=== PATIENT | male | born 1970 | race Caucasian/White ===

== ENCOUNTER 2018-05-21 10:00 | Inpatient (IN) | payer BC, OTHER ==
[2018-05-21] MEDS ORDERED: SODIUM CHLORIDE 0.9% 1000ML 1,000 ML IV ONE ×2 (10:45→14:30)
[2018-05-21] MEDS: SODIUM CHLORIDE 0.9% FLUSH 10 ML SOL IV SCH ×2 (11:00→19:35)
[2018-05-21] MEDS: LEVOFLOXACIN 500 MG (PREMIX) 500 MG/100 ML SOL IV SCH (11:20)
[2018-05-21] MEDS ORDERED: VANCOMYCIN HCL 500 MG PDS 1,000 MG in SODIUM CHLORIDE 0.9% 250 ML 250 ML IV ONE (12:00)
[2018-05-21] MEDS ORDERED: SODIUM CHLORIDE 0.9% 250 ML 250 ML IV ONE (13:09)
[2018-05-21] MEDS ORDERED: VANCOMYCIN HYDROCHLORIDE 500 MG PDS IV ONE ×2 (13:09→23:48)
[2018-05-21] MEDS: ACETAMINOPHEN 325 MG PO PRN ×2 (13:28→17:35)
[2018-05-21] MEDS: SODIUM CHLORIDE 0.9% 1000ML 1,000 ML IV SCH (17:35)
[2018-05-21] MEDS: NOVOLOG FLEXPEN SC SCH ×2 (17:44→21:49)
[2018-05-21] MEDS: GABAPENTIN 300 MG CAP PO SCH (20:29)
[2018-05-21] MEDS: APAP/HYDROCODONE 325/5 TAB PO PRN ×2 (20:29→20:33)
[2018-05-21] MEDS: ALBUTEROL NEB SOL 2.5MG/3ML 1 VIAL SOL INH PRN (21:32)
[2018-05-21] MEDS: VANCOMYCIN HCL 500 MG PDS 1,000 MG in SODIUM CHLORIDE 0.9% 250 ML 250 ML IV SCH (22:26)
[2018-05-21] MEDS ORDERED: VANCOMYCIN HCL 500 MG PDS 2,000 MG in SODIUM CHLORIDE 0.9% 500 ML 500 ML IV ONE (23:15)
[2018-05-21] MEDS ORDERED: SODIUM CHLORIDE 0.9% 500 ML 500 ML IV ONE (23:49)
[2018-05-22] MEDS ORDERED: VANCOMYCIN HCL 500 MG PDS 2,000 MG in SODIUM CHLORIDE 0.9% 500 ML 500 ML IV ONE
[2018-05-22] MEDS: APAP/HYDROCODONE 325/5 TAB PO PRN ×3 (02:20→15:36)
[2018-05-22] MEDS: SODIUM CHLORIDE 0.9% FLUSH 10 ML SOL IV SCH ×3 (03:07→20:39)
[2018-05-22] MEDS: SODIUM CHLORIDE 0.9% 1000ML 1,000 ML IV SCH ×3 (05:20→22:48)
[2018-05-22 07:48] LABS: BASOPHILS % (AUTO) 1 % (0-3); EOSINOPHILS % (AUTO) 1 % (0-9); HEMATOCRIT 42 % (39-53); HEMOGLOBIN 13.6 gm/dl (13.5-17.7); LYMPHOCYTES % (AUTO) 9.6 % (10-50); MEAN CORPUSCULAR HEMOGLOBIN 30.6 pg (27.0-32.0); MEAN CORPUSCULAR HGB CONC 32.4 gm/dl (32.0-36.0); MEAN CORPUSCULAR VOLUME 94 fL (80-100); MONOCYTES % (AUTO) 6.4 % (0-12)
[2018-05-22 07:50] LABS: CALCIUM 8.4 mg/dl (8.5-10.1); CARBON DIOXIDE 27.5 mEq/L (21-32); CREATININE 0.84 mg/dl (0.80-1.30); CRP INFLAMMATORY 19.41 mg/dl (0.00-0.33); POTASSIUM 4.1 mMol/L (3.5-5.1)
[2018-05-22] MEDS: ALBUTEROL NEB SOL 2.5MG/3ML 1 VIAL SOL INH PRN ×2 (08:00→20:51)
[2018-05-22] MEDS: NOVOLOG FLEXPEN SC SCH ×5 (08:25→21:30)
[2018-05-22] MEDS: ENOXAPARIN 40 MG SOL SC SCH (08:30)
[2018-05-22] MEDS: GABAPENTIN 300 MG CAP PO SCH ×2 (08:30→20:51)
[2018-05-22] MEDS ORDERED: PHARMACOKINETICS 1 MISC PRN (09:07)
[2018-05-22] MEDS ORDERED: SODIUM CHLORIDE 0.9% 100 ML 100 ML IV ONE ×3 (09:51→21:54)
[2018-05-22] MEDS ORDERED: PIPERACILLIN/TAZOBACT 3.375 GM PDS IV ONE ×3 (09:51→21:54)
[2018-05-22] MEDS: PIPERACILLIN/TAZOBACT 3.375 GM 3.375 GM in SODIUM CHLORIDE 0.9% 100 ML 100 ML IV SCH ×4 (10:06→22:48)
[2018-05-22] MEDS: LEVOFLOXACIN 500 MG (PREMIX) 500 MG/100 ML SOL IV SCH (11:16)
[2018-05-22] MEDS ORDERED: VANCOMYCIN HYDROCHLORIDE 500 MG PDS IV ONE ×2 (12:25→21:54)
[2018-05-22] MEDS ORDERED: SODIUM CHLORIDE 0.9% 250 ML 250 ML IV ONE (12:25)
[2018-05-22] MEDS: VANCOMYCIN HCL 500 MG PDS 2,000 MG in SODIUM CHLORIDE 0.9% 250 ML 250 ML IV SCH (12:46)
[2018-05-22 18:17] LABS: HEMATOCRIT 42 % (39-53); MEAN CORPUSCULAR HEMOGLOBIN 30.7 pg (27.0-32.0); MEAN CORPUSCULAR VOLUME 93 fL (80-100)
[2018-05-22 18:46] LABS: BAND NEUTROPHILS % (MANUAL) 3 %; BASOPHILS % (MANUAL) 0 % (0-3); EOSINOPHILS % (MANUAL) 1 % (0-9); LYMPHOCYTES % (MANUAL) 17 % (10-50); MONOCYTES % (MANUAL) 6 % (0-12); NEUTROPHILS % (MANUAL) 73 % (37-80)
[2018-05-22] MEDS ORDERED: SODIUM CHLORIDE 0.9% FLUSH 10 ML SOL IV PRN (20:39)
[2018-05-22] MEDS ORDERED: SODIUM CHLORIDE 0.9% 500 ML 500 ML IV ONE (21:54)
[2018-05-23] MEDS ORDERED: SODIUM CHLORIDE 0.9% 100 ML 100 ML IV ONE ×4 (00:10→21:35)
[2018-05-23] MEDS ORDERED: PIPERACILLIN/TAZOBACT 3.375 GM PDS IV ONE ×4 (00:10→21:35)
[2018-05-23] MEDS: VANCOMYCIN HCL 500 MG PDS 2,000 MG in SODIUM CHLORIDE 0.9% 250 ML 250 ML IV SCH ×3 (00:30→23:37)
[2018-05-23] MEDS: SODIUM CHLORIDE 0.9% FLUSH 10 ML SOL IV SCH ×3 (03:01→19:33)
[2018-05-23] MEDS: APAP/HYDROCODONE 325/5 TAB PO PRN ×2 (03:02→20:47)
[2018-05-23] MEDS: PIPERACILLIN/TAZOBACT 3.375 GM 3.375 GM in SODIUM CHLORIDE 0.9% 100 ML 100 ML IV SCH ×4 (04:25→21:41)
[2018-05-23 07:24] LABS: BASOPHILS % (AUTO) 1 % (0-3); EOSINOPHILS % (AUTO) 5 % (0-9); HEMATOCRIT 40 % (39-53); LYMPHOCYTES % (AUTO) 17.4 % (10-50); MEAN CORPUSCULAR HEMOGLOBIN 30.7 pg (27.0-32.0); MEAN CORPUSCULAR HGB CONC 32.7 gm/dl (32.0-36.0); MEAN CORPUSCULAR VOLUME 94 fL (80-100); MONOCYTES % (AUTO) 10.3 % (0-12); NEUTROPHILS % (AUTO) 66.5 % (37-80)
[2018-05-23 07:46] LABS: BILIRUBIN,TOTAL 0.8 mg/dl (0.2-1.0); CALCIUM 8.5 mg/dl (8.5-10.1); CARBON DIOXIDE 27.1 mEq/L (21-32); CREATININE 0.94 mg/dl (0.80-1.30); TOTAL PROTEIN 6.7 gm/dl (6.4-8.2)
[2018-05-23] MEDS: NOVOLOG FLEXPEN SC SCH ×4 (08:25→20:51)
[2018-05-23] MEDS: GABAPENTIN 300 MG CAP PO SCH ×2 (09:18→20:47)
[2018-05-23] MEDS: LEVOFLOXACIN 500 MG TAB PO SCH (09:18)
[2018-05-23] MEDS: ENOXAPARIN 40 MG SOL SC SCH (09:19)
[2018-05-23] MEDS: SODIUM CHLORIDE 0.9% 1000ML 1,000 ML IV SCH (10:40)
[2018-05-23] MEDS ORDERED: VANCOMYCIN HYDROCHLORIDE 500 MG PDS IV ONE (12:40)
[2018-05-23] MEDS ORDERED: SODIUM CHLORIDE 0.9% 500 ML 500 ML IV ONE (12:42)
[2018-05-23] MEDS: ALBUTEROL NEB SOL 2.5MG/3ML 1 VIAL SOL INH PRN (17:20)
[2018-05-24] MEDS: SODIUM CHLORIDE 0.9% FLUSH 10 ML SOL IV SCH ×3 (02:06→18:48)
[2018-05-24] MEDS: SODIUM CHLORIDE 0.9% 1000ML 1,000 ML IV SCH ×2 (02:46→09:09)
[2018-05-24] MEDS ORDERED: PIPERACILLIN/TAZOBACT 3.375 GM PDS IV ONE (03:30)
[2018-05-24] MEDS ORDERED: SODIUM CHLORIDE 0.9% 100 ML 100 ML IV ONE (03:30)
[2018-05-24] MEDS: PIPERACILLIN/TAZOBACT 3.375 GM 3.375 GM in SODIUM CHLORIDE 0.9% 100 ML 100 ML IV SCH (03:58)
[2018-05-24 07:44] LABS: BASOPHILS % (AUTO) 1 % (0-3); EOSINOPHILS % (AUTO) 5 % (0-9); HEMATOCRIT 37 % (39-53); HEMOGLOBIN 12.5 gm/dl (13.5-17.7); LYMPHOCYTES % (AUTO) 18.1 % (10-50); MEAN CORPUSCULAR HEMOGLOBIN 31.4 pg (27.0-32.0); MEAN CORPUSCULAR HGB CONC 33.7 gm/dl (32.0-36.0); MEAN CORPUSCULAR VOLUME 93 fL (80-100); NEUTROPHILS % (AUTO) 62.8 % (37-80)
[2018-05-24 07:46] LABS: ALBUMIN 2.7 gm/dl (3.4-5.0); BILIRUBIN,TOTAL 0.6 mg/dl (0.2-1.0); CALCIUM 8.1 mg/dl (8.5-10.1); CARBON DIOXIDE 27.9 mEq/L (21-32); CREATININE 0.99 mg/dl (0.80-1.30); CRP INFLAMMATORY 7.82 mg/dl (0.00-0.33); TOTAL PROTEIN 6.2 gm/dl (6.4-8.2)
[2018-05-24] MEDS: NOVOLOG FLEXPEN SC SCH ×2 (09:08→11:12)
[2018-05-24] MEDS: ALBUTEROL/IPRATROPIUM 1 VIAL SOL INH SCH ×3 (09:41→21:29)
[2018-05-24] MEDS: NICOTINE 21 MG PATCH TD SCH ×2 (09:41→11:12)
[2018-05-24] MEDS: LOSARTAN POTASSIUM 50 MG TAB PO SCH (09:41)
[2018-05-24] MEDS: METFORMIN HYDROCHLORIDE 500 MG TAB PO SCH ×2 (09:42→17:14)
[2018-05-24] MEDS: LEVOFLOXACIN 500 MG TAB PO SCH (09:42)
[2018-05-24] MEDS: GLIMEPIRIDE 2 MG TAB PO SCH ×2 (09:43→21:06)
[2018-05-24] MEDS: GABAPENTIN 300 MG CAP PO SCH ×2 (09:43→21:04)
[2018-05-24] MEDS: ENOXAPARIN 40 MG SOL SC SCH (09:51)
[2018-05-24] MEDS: PIOGLITAZONE HCL 30 MG TAB PO SCH (12:12)
[2018-05-24] MEDS: APAP/HYDROCODONE 325/5 TAB PO PRN (17:01)
[2018-05-24] MEDS ORDERED: LIRAGLUTIDE 1.8 MG SC SCH (21:00)
[2018-05-25] MEDS: SODIUM CHLORIDE 0.9% FLUSH 10 ML SOL IV SCH ×2 (03:06→10:47)
[2018-05-25] MEDS: ALBUTEROL/IPRATROPIUM 1 VIAL SOL INH SCH ×3 (03:09→14:05)
[2018-05-25] MEDS: APAP/HYDROCODONE 325/5 TAB PO PRN (03:29)
[2018-05-25 07:27] LABS: BASOPHILS % (AUTO) 2 % (0-3); EOSINOPHILS % (AUTO) 4 % (0-9); HEMATOCRIT 38 % (39-53); HEMOGLOBIN 12.7 gm/dl (13.5-17.7); LYMPHOCYTES % (AUTO) 21.4 % (10-50); MEAN CORPUSCULAR HEMOGLOBIN 31.2 pg (27.0-32.0); MEAN CORPUSCULAR HGB CONC 33.5 gm/dl (32.0-36.0); MEAN CORPUSCULAR VOLUME 93 fL (80-100); MONOCYTES % (AUTO) 11.7 % (0-12); NEUTROPHILS % (AUTO) 61.3 % (37-80)
[2018-05-25 07:41] LABS: CALCIUM 8.9 mg/dl (8.5-10.1); CREATININE 1.04 mg/dl (0.80-1.30)
[2018-05-25 07:48] LABS: CARBON DIOXIDE 30.9 mEq/L (21-32)
[2018-05-25 08:27] VITALS: BP 155/83; PULSE 78; RESP 18; TEMP 98.5; O2SAT 95
[2018-05-25] MEDS: ENOXAPARIN 40 MG SOL SC SCH (09:18)
[2018-05-25] MEDS: PIOGLITAZONE HCL 30 MG TAB PO SCH (09:22)
[2018-05-25] MEDS: LEVOFLOXACIN 500 MG TAB PO SCH (09:22)
[2018-05-25] MEDS: METFORMIN HYDROCHLORIDE 500 MG TAB PO SCH (09:22)
[2018-05-25] MEDS: GLIMEPIRIDE 2 MG TAB PO SCH (09:22)
[2018-05-25] MEDS: LOSARTAN POTASSIUM 50 MG TAB PO SCH (09:23)
[2018-05-25] MEDS: GABAPENTIN 300 MG CAP PO SCH (09:23)
[2018-05-25] MEDS: NICOTINE 21 MG PATCH TD SCH (10:48)
== END 2018-05-25 14:20 | disposition home or self-care (01) | DRG 144 ==
LOC: ACUTE CARE 10:17
PROVIDERS: ADMIT Family Medicine; ATTEND Family Medicine
DX: R06.02 Shortness of breath (principal); L03.116 Cellulitis of left lower limb; G62.9 Polyneuropathy, unspecified; E11.9 Type 2 diabetes mellitus without complications; I10 Essential (primary) hypertension; S91.102D Unspecified open wound of left great toe without damage to nail, subsequent encounter; R79.1 Abnormal coagulation profile; R23.4 Changes in skin texture; L84 Corns and callosities
CPT/HCPCS: 36415; 71275; 73721; 80048; 80053; 82962; 83880; 85007; 85025; 85027; 85378; 93005; 94640; 99070; 99252; J1650; J1956; J2543; J3370; J7613; Q9967; A6232; A9270-GY; J1815